=== PATIENT | female | born 1970 | race Caucasian/White ===

== ENCOUNTER → 2021-11-05 | Outpatient (CLI) | payer BC ==
[~2021-11-05] MED LIST: ALLEGRA ALLERG180 MG PO; ASPIR 8181 MG PO; DOSS PO; IBUPROFEN400 MG PO; PERCOCET 5-3251 EACH PO; PHENERGAN 12.12.5 M1 PO; ZANTAC150 MG PO
== END ==
LOC: KOH-I 09:06
DX: M25.562 Pain in left knee (principal); M17.12 Unilateral primary osteoarthritis, left knee
CPT/HCPCS: 73562